=== PATIENT | female | born 1955 ===

== ENCOUNTER 2019-12-23 03:44 | Emergency (ER) | payer BC ==
--- NOTE | 2019-12-23 04:39 | EDM.PDOC ---
ED HPI GENERAL MEDICAL PROBLEM - General Chief Complaint: Lower Extremity Injury/Pain Stated Complaint: FOOT INJURY Time Seen by Provider: 12/23/19 04:34 Source of Information: Reports: Patient History Limitations: Reports: No Limitations - History of Present Illness INITIAL COMMENTS - FREE TEXT/NARRATIVE: Patient twisted right ankle at 6 pm last night, complains of worsening pain to the ankle, worse with weight bearing. 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 ED EXAM, GENERAL - Physical Exam Exam: See Below Exam Limited By: No Limitations General Appearance: Alert, WD/WN, No Apparent Distress Throat/Mouth: No Airway Compromise Head: Atraumatic, Normocephalic Neck: Full Range of Motion Respiratory/Chest: No Respiratory Distress Peripheral Pulses: 2+: Radial (R) Extremities: Normal Capillary Refill, Joint Swelling (minimal), Other (mild tenderness right ankle) Neurological: Alert, Normal Cognition, No Motor/Sensory Deficits Psychiatric: Normal Affect, Normal Mood Skin Exam: Warm, Dry Course - Vital Signs Text/Narrative:: T 97, BP 114/69, HR 81, Sa02 98% RA - Orders/Labs/Meds Orders: Active Orders 24 hr Category Date Time Status Splinting [RC] ASDIRECTED Care 12/23/19 04:32 Ordered Ankle Min 3V Rt [CR] Stat Exams 12/23/19 04:19 Taken - Radiology Interpretation Free Text/Narrative:: Right Ankle XR: No acute osseous abnormality. (ED Provider interpretation) Departure - Departure Time of Disposition: 04:39 Disposition: Home, Self-Care 01 Condition: Good Clinical Impression: Right ankle sprain Qualifiers: Encounter type: initial encounter Involved ligament of ankle: other ligament Qualified Code(s): S93.491A - Sprain of other ligament of right ankle, initial encounter - Discharge Information Instructions: Ankle Sprain, [id number] Referrals: Quynh Barboza NP [Primary Care Provider] - Arturo Hernandez DO [Physician] - 3 Days Additional Instructions: Weight bear as tolerated. Take OTC Ibuprofen as needed. Elevate, rest. Follow up with Orthopedics in 2-3 days. Sepsis Event Note - Evaluation Sepsis Screening Result: No Definite Risk - My Orders Last 24 Hours: My Active Orders 12/23/19 04:19 Ankle Min 3V Rt [CR] Stat 12/23/19 04:32 Splinting [RC] ASDIRECTED - Assessment/Plan Last 24 Hours: My Active Orders 12/23/19 04:19 Ankle Min 3V Rt [CR] Stat 12/23/19 04:32 Splinting [RC] ASDIRECTED
[2019-12-23] MEDS ORDERED: Ibuprofen 600 MG Tab PO ONE (04:44)
[2019-12-23 05:01] VITALS: BP 114/69; PULSE 83
== END 2019-12-23 04:50 | disposition home or self-care (01) ==
LOC: FB.ED 03:44
DX: S93.491A Sprain of other ligament of right ankle, initial encounter (principal); E11.9 Type 2 diabetes mellitus without complications; Z88.8 Allergy status to other drugs, medicaments and biological substances; Z88.0 Allergy status to penicillin; Z79.84 Long term (current) use of oral hypoglycemic drugs; X50.1XXA Overexertion from prolonged static or awkward postures, initial encounter
CPT/HCPCS: 73610-RT; 99283-25

== ENCOUNTER 2024-09-28 19:11 | Emergency (ER) | payer BC, MEDICARE ==
[2024-09-28 19:55] VITALS: BP 149/95; PULSE 81
== END 2024-09-28 21:28 | disposition home or self-care (01) ==
LOC: FB.ED 19:11
DX: S06.0X0A Concussion without loss of consciousness, initial encounter (principal); E11.9 Type 2 diabetes mellitus without complications; Z90.13 Acquired absence of bilateral breasts and nipples; Z88.0 Allergy status to penicillin; Z88.8 Allergy status to other drugs, medicaments and biological substances; Z79.84 Long term (current) use of oral hypoglycemic drugs; Z79.899 Other long term (current) drug therapy; W01.198A Fall on same level from slipping, tripping and stumbling with subsequent striking against other object, initial encounter
CPT/HCPCS: 70450; 99284